=== PATIENT | female | born 1990 | race Caucasian/White ===

== ENCOUNTER 2020-08-06 16:18 | Observation (INO) ==
[2020-08-06 18:52] LABS: Creatinine,Urine 181 mg/dL; Protein/Creatinine Ratio,Urine 0.49 mg/mg (0.00-0.20)
[2020-08-06 20:24] LABS: Amphetamine Screen,Urine Positive ng/mL (Cutoff=1000); Barbiturate Screen,Urine Negative ng/mL (Cutoff=200); Benzodiazepines Screen,Urine Negative ng/mL (Cutoff=200); Cannabinoid Screen,Urine Negative ng/mL (Cutoff = 50); Cocaine Screen,Urine Negative ng/mL (Cutoff= 300); Opiate Screen,Urine Negative ng/mL (Cutoff=300); Phencyclidine Screen,Urine Negative ng/mL (Cutoff=25)
[2020-08-06 21:33] LABS: Bacteria,Urine Few per hpf (None-Few); Bilirubin,Urine Negative (Negative); Blood,Urine Trace (Negative); Clarity,Urine Turbid (Clear); Color,Urine Yellow (Yellow); Glucose,Urine (UA) Normal (Normal); Ketones,Urine 10 mg/dL (Negative); Leukocyte Esterase,Urine Small (Negative); Mucus,Urine Moderate per lpf (None-Few); Nitrite,Urine Negative (Negative); Protein,Urine 100 mg/dL (Neg-Trace); RBC,Urine 15-30 per hpf (0-3); Specific Gravity,Urine 1.027 (1.010-1.025); Squamous Epithelial Cell,Urine Many per hpf (None-Few); Urobilinogen,Urine Normal (Normal)
[2020-08-06] MEDS ORDERED: hydrOXYzine pamoate 25 MG CAPSULE PO PRN (22:08)
== END 2020-08-07 08:45 | disposition home or self-care (01) ==
LOC: 1NENULAB
PROVIDERS: ADMIT Obstetrics & Gynecology; ATTEND Obstetrics & Gynecology

== ENCOUNTER → 2020-08-24 14:30 | Observation (INO) ==
[~2020-08-24 14:30] MED LIST: Ringers Solution, Lactated 1,000 ML ONE
[2020-08-24 14:45] LABS: Trichomonas DNA Not Detected (Not Detect)
[2020-08-24 14:46] LABS: Candida DNA DETECTED (Not Detect); Gardnerella DNA Not Detected (Not Detect)
== END | disposition left against medical advice (07) ==
LOC: 1NENULAB
PROVIDERS: ADMIT Obstetrics & Gynecology; ATTEND Obstetrics & Gynecology

== ENCOUNTER 2020-09-04 16:37 | Inpatient (IN) ==
[2020-09-04 15:00] LABS: Protein/Creatinine Ratio,Urine 0.41 mg/mg (0.00-0.20)
[2020-09-04 15:45] LABS: Basophils % 0.4 %; Eosinophils % 0.2 %; Hematocrit 34.1 % (35.3-44.9); Hemoglobin 10.8 g/dL (11.5-15.4); Lymphocytes # 1.9 K/mcL (0.6-4.6); Lymphocytes % 18.6 %; Mean Corpuscular HGB Conc 31.7 g/dL (31.6-35.5); Mean Corpuscular Hemoglobin 28.1 pg (28.0-33.3); Mean Corpuscular Volume 88.8 fL (83.0-100.0); Mean Platelet Volume 10.6 fL (9.4-12.4); Monocytes # 0.5 K/mcL (0.0-1.3); Monocytes % 4.6 %; Neutrophils # 7.7 K/mcL (1.6-8.9); Platelet Count 348 K/mcL (140-400); Red Blood Count 3.84 M/mcL (3.82-4.97); Red Cell Distribution Width 13.6 % (11.5-14.5); Segmented Neutrophils % 75.2 %; White Blood Count 10.2 K/mcL (4.3-11.1)
[2020-09-04 16:04] LABS: Alanine Aminotransferase 31 Units/L (7-52); Aspartate Amino Transferase 34 Units/L (13-39); BUN/Creatinine Ratio 14 (6-26); Blood Urea Nitrogen 10 mg/dL (6-20); Lactate Dehydrogenase 214 Units/L (140-271); Uric Acid 3.6 mg/dL (2.3-7.6); eGFR For African Americans > 60 (> 60); eGFR For Non-African Americans > 60 (> 60)
[~2020-09-04 16:37] MED LIST changes: +CeFAZolin 2,000 MG/50 ML BAG IVPB ONE; +Famotidine 20 MG/2 ML VIAL IVP ONE; +Metoclopramide 10 MG/2 ML VIAL IVP ONE; +Ondansetron ODT 4 MG TAB.RAPDIS SL PRN
[2020-09-04] MEDS ORDERED: Ringers Solution, Lactated 1,000 ML ONE (16:57)
[2020-09-04 17:00] LABS: Influenza A PCR Negative (Negative); Influenza B PCR Negative (Negative); Resp. Syncytial Virus PCR Negative (Negative); SARS-CoV-2 by PCR (In House) Negative (Negative)
[2020-09-04] MEDS ORDERED: Ringers Solution, Lactated 2,000 ML IVC ONE (17:07)
[2020-09-04] MEDS ORDERED: Ringers Solution, Lactated 1,000 ML IVC SCH ×2 (17:15→23:05)
[2020-09-04 19:04] LABS: Amphetamine Screen,Urine Positive ng/mL (Cutoff=1000); Barbiturate Screen,Urine Negative ng/mL (Cutoff=200); Benzodiazepines Screen,Urine Negative ng/mL (Cutoff=200); Cannabinoid Screen,Urine Negative ng/mL (Cutoff = 50); Cocaine Screen,Urine Negative ng/mL (Cutoff= 300); Opiate Screen,Urine Negative ng/mL (Cutoff=300); Phencyclidine Screen,Urine Negative ng/mL (Cutoff=25)
[2020-09-04] MEDS ORDERED: *HR* Midazolam HCl 2 MG/2 ML VIAL ONE (19:44)
[2020-09-04] MEDS ORDERED: *HR* FentaNYL (PF) 100 MCG/2 ML VIAL ONE (19:44)
[2020-09-04] MEDS ORDERED: *HR* Morphine Sulfate/PF 10 MG/10 ML AMPUL ONE (19:45)
[2020-09-04] MEDS ORDERED: Ondansetron 4 MG/2 ML VIAL ONE (19:49)
[2020-09-04] MEDS ORDERED: Acetaminophen IV 1,000 MG/100 ML BAG IVPB ONE (19:50)
[2020-09-04] MEDS ORDERED: *HR* HYDROmorphone PF 0.5 MG/0.5 ML SYRINGE IVP PRN (19:56)
[2020-09-04] MEDS ORDERED: Ondansetron 4 MG/2 ML VIAL IVP PRN ×2 (19:56→23:05)
[2020-09-04] MEDS ORDERED: EPHEDrine 50 MG/ML VIAL ONE (20:19)
[2020-09-04] MEDS ORDERED: *HR* Oxytocin 10 UNIT/ML VIAL IM ONE (20:26)
[2020-09-04] MEDS ORDERED: Lidocaine/EPI 1:100k 1% 30 ML VIAL INFILT ONE (23:05)
[2020-09-04] MEDS ORDERED: Simethicone 80 MG TAB.CHEW PO PRN (23:05)
[2020-09-04] MEDS ORDERED: Metoclopramide 10 MG/2 ML VIAL IVP PRN (23:05)
[2020-09-04] MEDS ORDERED: Rho Immune Globulin 1,500 UNIT SYRINGE IM ONE (23:05)
[2020-09-04] MEDS ORDERED: Sennosides 8.6 MG TABLET PO PRN (23:05)
[2020-09-04] MEDS ORDERED: Albuterol 2.5 MG/3 ML NEBULIZER IH PRN (23:06)
[2020-09-05] MEDS: Oxytocin 20 units/ LR 1000 mL 20 UNIT/1,000 ML BAG IVC SCH ×2 (00:11→08:07)
[2020-09-05] MEDS: Ketorolac 30 MG/ML VIAL IVP PRN ×2 (00:40→08:08)
[2020-09-05 06:31] LABS: Basophils % 0.4 %; Eosinophils % 0.4 %; Hematocrit 29.2 % (35.3-44.9); Hemoglobin 9.5 g/dL (11.5-15.4); Immature Granulocytes % 0.7 % (0-4); Lymphocytes # 2.2 K/mcL (0.6-4.6); Lymphocytes % 24.2 %; Mean Corpuscular HGB Conc 32.5 g/dL (31.6-35.5); Mean Corpuscular Hemoglobin 28.9 pg (28.0-33.3); Mean Corpuscular Volume 88.8 fL (83.0-100.0); Monocytes # 0.5 K/mcL (0.0-1.3); Neutrophils # 6.2 K/mcL (1.6-8.9); Platelet Count 293 K/mcL (140-400); Red Blood Count 3.29 M/mcL (3.82-4.97); Red Cell Distribution Width 13.7 % (11.5-14.5); Segmented Neutrophils % 69.3 %
[2020-09-05] MEDS: *HR* OxyCODONE/APAP 10/325 TABLET PO PRN ×3 (09:00→22:12)
[2020-09-05] MEDS: cephALEXin 500 MG CAPSULE PO SCH ×3 (09:00→22:12)
[2020-09-05] MEDS: Prenatal Vit/FA 1 EACH TABLET PO SCH (09:00)
[2020-09-05] MEDS: metroNIDAZOLE 500 MG TABLET PO SCH ×3 (09:00→22:11)
[2020-09-05] MEDS ORDERED: Etonogestrel 68 MG IMPLANT IL ONE ×2 (09:32→10:07)
[2020-09-05] MEDS ORDERED: Lidocaine/EPI 1:100k 1% 30 ML VIAL INFILT ONE (10:30)
[2020-09-05] MEDS: Ibuprofen 600 MG TABLET PO PRN ×2 (13:35→22:12)
[2020-09-05] MEDS ORDERED: Neosporin OINT 15 GM TUBE TP PRN (15:08)
[2020-09-06] MEDS: *HR* OxyCODONE/APAP 5/325 TABLET PO PRN ×2 (09:41→10:00)
[2020-09-06] MEDS: cephALEXin 500 MG CAPSULE PO SCH ×3 (09:42→20:51)
[2020-09-06] MEDS: metroNIDAZOLE 500 MG TABLET PO SCH ×3 (09:42→20:51)
[2020-09-06] MEDS: Prenatal Vit/FA 1 EACH TABLET PO SCH (09:42)
[2020-09-06] MEDS ORDERED: Measles/Mumps/Rubella Vacc 0.5 ML VIAL SQ ONE (10:03)
[2020-09-06] MEDS: Ibuprofen 600 MG TABLET PO PRN ×2 (10:48→20:51)
[2020-09-06] MEDS: *HR* OxyCODONE/APAP 10/325 TABLET PO PRN ×2 (16:29→22:29)
[2020-09-07] MEDS ORDERED: NIFEdipine XL (24 HR) 60 MG TAB.ER.24 PO SCH (09:15)
[2020-09-07] MEDS: Ibuprofen 600 MG TABLET PO PRN (09:58)
[2020-09-07] MEDS: Prenatal Vit/FA 1 EACH TABLET PO SCH (09:58)
[2020-09-07 10:42] LABS: Basophils # 0.1 K/mcL (0.0-0.2); Eosinophils # 0.2 K/mcL (0.0-0.6); Hematocrit 35.4 % (35.3-44.9); Lymphocytes % 18.6 %; Mean Corpuscular HGB Conc 31.6 g/dL (31.6-35.5); Mean Corpuscular Hemoglobin 28.5 pg (28.0-33.3); Mean Corpuscular Volume 90.1 fL (83.0-100.0); Mean Platelet Volume 9.6 fL (9.4-12.4); Monocytes # 0.6 K/mcL (0.0-1.3); Monocytes % 5.6 %; Neutrophils # 7.7 K/mcL (1.6-8.9); Nucleated Red Blood Cells 0.2 /100 WBC (0); Platelet Count 398 K/mcL (140-400); Red Blood Count 3.93 M/mcL (3.82-4.97); Red Cell Distribution Width 13.6 % (11.5-14.5); Segmented Neutrophils % 70.8 %; White Blood Count 10.9 K/mcL (4.3-11.1)
[2020-09-07 10:44] LABS: Hemoglobin 11.2 g/dL (11.5-15.4)
[2020-09-07 11:24] LABS: Alanine Aminotransferase 28 Units/L (7-52); Aspartate Amino Transferase 27 Units/L (13-39); BUN/Creatinine Ratio 17 (6-26); Blood Urea Nitrogen 10 mg/dL (6-20); Lactate Dehydrogenase 239 Units/L (140-271); Uric Acid 2.7 mg/dL (2.3-7.6); eGFR For African Americans > 60 (> 60); eGFR For Non-African Americans > 60 (> 60)
[2020-09-07 12:12] VITALS: BP 147/102
== END 2020-09-07 11:40 | disposition home or self-care (01) | DRG 540 ==
LOC: 1NENULAB → 1NENUOBS 23:56
PROVIDERS: ADMIT Obstetrics & Gynecology; ATTEND Obstetrics & Gynecology

== ENCOUNTER 2021-01-13 18:10 | Observation (INO) ==
[2021-01-13] MEDS ORDERED: *HR* FentaNYL (PF) 100 MCG/2 ML VIAL IVP ONE (18:18)
[2021-01-13] MEDS ORDERED: Ondansetron 4 MG/2 ML VIAL IVP ONE (18:18)
[2021-01-13] MEDS ORDERED: Isovue-370 500 ML BOTTLE IVP ONE (19:19)
[2021-01-13] MEDS: 0.9 % Sodium Chloride 1,000 ML IVC SCH (19:46)
[2021-01-13 20:10] LABS: Basophils % 0.4 %; Eosinophils # 0.1 K/mcL (0.0-0.6); Eosinophils % 1.5 %; Hematocrit 43.6 % (35.3-44.9); Hemoglobin 13.4 g/dL (11.5-15.4); Immature Granulocytes % 0.3 % (0-4); Lymphocytes # 2.8 K/mcL (0.6-4.6); Lymphocytes % 36.4 %; Mean Corpuscular HGB Conc 30.7 g/dL (31.6-35.5); Mean Corpuscular Hemoglobin 25.3 pg (28.0-33.3); Mean Corpuscular Volume 82.3 fL (83.0-100.0); Mean Platelet Volume 9.8 fL (9.4-12.4); Monocytes # 0.5 K/mcL (0.0-1.3); Monocytes % 5.9 %; Neutrophils # 4.2 K/mcL (1.6-8.9); Platelet Count 274 K/mcL (140-400); Red Cell Distribution Width 15.1 % (11.5-14.5); Segmented Neutrophils % 55.5 %; White Blood Count 7.6 K/mcL (4.3-11.1)
[2021-01-13 20:14] LABS: Estimated Average Glucose 126 mg/dl
[2021-01-13 20:28] LABS: Acetaminophen < 10 mcg/mL (10-20); BUN/Creatinine Ratio 20 (6-26); Blood Urea Nitrogen 16 mg/dL (6-20); Calcium 9.6 mg/dL (8.6-10.3); Carbon Dioxide 27 mEq/L (23-29); Chloride 102 mEq/L (98-107); Chol/HDL Ratio 4.3 (0-4.9); Cholesterol 182 mg/dL (< 200); Ethanol < 10 mg/dL (Less than 10); Glucose 121 mg/dL (70-105); HDL Cholesterol 42 mg/dL (40-59); LDL Cholesterol,Calculated 111 mg/dL (< 100); Osmolality,Calculated 292 (280-300); Potassium 4.1 mEq/L (3.5-5.1); Salicylate < 2.5 mg/dL (15.0-30.0); Sodium 140 mEq/L (136-145); Triglycerides 144 mg/dL (< 150); eGFR For African Americans > 60 (> 60); eGFR For Non-African Americans > 60 (> 60)
[2021-01-13 20:39] LABS: Bacteria,Urine Few per hpf (None-Few); Bilirubin,Urine Negative (Negative); Blood,Urine Moderate (Negative); Budding Yeast,Urine Few per hpf (None Seen); Clarity,Urine Turbid (Clear); Color,Urine Light-Yellow (Yellow); Glucose,Urine (UA) Normal (Normal); Ketones,Urine Negative (Negative); Leukocyte Esterase,Urine Negative (Negative); Mucus,Urine Few per lpf (None-Few); Nitrite,Urine Negative (Negative); PH,Urine 6.5 pH Units (5.0-8.0); Protein,Urine Trace mg/dL (Neg-Trace); RBC,Urine 0-3 per hpf (0-3); Specific Gravity,Urine 1.025 (1.010-1.025); Squamous Epithelial Cell,Urine Moderate per hpf (None-Few); Urobilinogen,Urine Normal (Normal)
[2021-01-13 20:47] LABS: Amphetamine Screen,Urine Negative ng/mL (Cutoff=1000); Barbiturate Screen,Urine Negative ng/mL (Cutoff=200); Benzodiazepines Screen,Urine Negative ng/mL (Cutoff=200); Cannabinoid Screen,Urine Negative ng/mL (Cutoff = 50); Cocaine Screen,Urine Negative ng/mL (Cutoff= 300); Opiate Screen,Urine Negative ng/mL (Cutoff=300); Phencyclidine Screen,Urine Negative ng/mL (Cutoff=25)
[2021-01-13] MEDS ORDERED: Ondansetron 4 MG/2 ML VIAL IVP PRN (23:17)
[2021-01-13] MEDS ORDERED: Naloxone 0.4 MG/ML INJ IVP PRN (23:17)
[2021-01-14] MEDS: 0.9 % Sodium Chloride 1,000 ML IVC SCH ×2 (00:52→09:40)
[2021-01-14 02:51] LABS: BUN/Creatinine Ratio 17 (6-26); Blood Urea Nitrogen 13 mg/dL (6-20); Calcium 8.7 mg/dL (8.6-10.3); Carbon Dioxide 17 mEq/L (23-29); Chloride 102 mEq/L (98-107); Glucose 105 mg/dL (70-105); Osmolality,Calculated 284 (280-300); Potassium 3.7 mEq/L (3.5-5.1); Sodium 137 mEq/L (136-145); eGFR For African Americans > 60 (> 60); eGFR For Non-African Americans > 60 (> 60)
[2021-01-14 04:21] LABS: Basophils % 0.4 %; Eosinophils # 0.2 K/mcL (0.0-0.6); Eosinophils % 2.2 %; Hematocrit 39.5 % (35.3-44.9); Hemoglobin 12.4 g/dL (11.5-15.4); Immature Granulocytes % 0.3 % (0-4); Lymphocytes # 3.1 K/mcL (0.6-4.6); Lymphocytes % 44.1 %; Mean Corpuscular HGB Conc 31.4 g/dL (31.6-35.5); Mean Corpuscular Hemoglobin 25.3 pg (28.0-33.3); Mean Corpuscular Volume 80.6 fL (83.0-100.0); Mean Platelet Volume 9.8 fL (9.4-12.4); Monocytes # 0.4 K/mcL (0.0-1.3); Monocytes % 5.9 %; Neutrophils # 3.4 K/mcL (1.6-8.9); Platelet Count 272 K/mcL (140-400); Red Cell Distribution Width 15.1 % (11.5-14.5); Segmented Neutrophils % 47.1 %; White Blood Count 7.1 K/mcL (4.3-11.1)
[2021-01-14 10:53] VITALS: BP 125/75
== END 2021-01-14 14:13 | disposition home or self-care (01) ==
LOC: 3BNU 18:10 → EMEROOARM 18:10 → 3BNU 23:50
PROVIDERS: ADMIT Internal Medicine; ATTEND Internal Medicine